=== PATIENT | female | born 1990 | race African-American/Black ===

== ENCOUNTER 2018-04-12 03:33 | Emergency (ER) | payer OTHER ==
[~2018-04-12] VITALS: Ht 162.6 cm; Wt 86.2 kg
[~2018-04-12 03:33] MED LIST: ANECREAM530 GM TOP; BACTRIM DS TAB1 EACH PO; CELEXA20 MG PO; COLACE100 MG PO; DIFLUCAN200 MG PO; IBUPROFEN 600600 M1 PO; IBUPROFEN 800800 MG PO; KEFLEX500 MG PO; MIRALAX17 GM PO; ONDANSETRON HCL4 M2 PO; PREDNISONE 10 M10 M1 PO; PROCTOFOAM15 GM RECTAL; PYRIDIUM100 M1 PO; TRAMADOL 50 MG50 MG PO; TRINATE TABLET1 TAB PO; ULTRAM 50MG TAB50 MG PO; VENTOLIN HFA 1818 GM INH; VISTARIL 25 MG25 M1 PO; ZPAK PO
[2018-04-12 03:56] LABS: URINE BILIRUBIN NEGATIVE (Negative); URINE BLOOD NEGATIVE (Negative); URINE CLARITY CLEAR; URINE COLOR YELLOW; URINE GLUCOSE-RANDOM* NEGATIVE (Negative); URINE KETONES NEGATIVE (Negative); URINE LEUKOCYTES-REFLEX NEGATIVE (Negative); URINE NITRITE-REFLEX NEGATIVE (Negative); URINE PROTEIN (DIPSTICK) NEGATIVE (Negative); URINE UROBILINOGEN 0.2 E.U./dl (0.2-1.0)
[2018-04-12 03:57] LABS: ABSOLUTE NEUTROPHILS 2.9 thou/uL (1.4-8.2); BASOPHILS 0.9 % (0.0-2.0); EOSINOPHILS 3.7 % (0.0-3.0); HEMATOCRIT 46.7 % (37.0-47.0); LYMPHOCYTES 37.4 % (24.0-44.0); MCH 34.1 pg (26.0-34.0); MCHC 34.3 g/dL (28.0-37.0); MCV 99.5 fL (80.0-100.0); MONOCYTES 6.2 % (1.0-8.0); PLATELET COUNT 271 thou/uL (150-400); POLYS 51.8 % (36.0-66.0); RDW 13.9 % (10.5-14.5); WBC 5.6 thou/uL (4.0-11.0)
[2018-04-12 04:01] LABS: CALCIUM 8.8 mg/dL (8.5-10.1); CREATININE 0.9 mg/dL (0.6-1.0); POTASSIUM 3.7 mmol/L (3.5-5.1)
[2018-04-12 04:07] LABS: TOTAL BILIRUBIN 0.2 mg/dL (<0.1-1.0); TOTAL PROTEIN 7.9 g/dL (6.4-8.2)
[2018-04-12] MEDS ORDERED: ZOFRAN4 MG PO (05:26)
[2018-04-12 05:34] VITALS: BP 99/61
== END 2018-04-12 05:34 | disposition home or self-care (01) ==
LOC: ER 03:33
PROVIDERS: Student in an Organized Health Care Education/Training Program
DX: R10.84 Generalized abdominal pain (principal); R11.2 Nausea with vomiting, unspecified

== ENCOUNTER → 2020-07-03 | Outpatient (CLI) | payer OTHER ==
[~2020-07-03] MED LIST changes: +ZOFRAN4 MG PO
== END ==
LOC: LAB 11:44
PROVIDERS: ATTEND Nurse Practitioner
DX: R50.9 Fever, unspecified (principal); R05 Cough; Z20.822 Contact with and (suspected) exposure to COVID-19

== ENCOUNTER 2021-02-07 12:58 | Emergency (ER) | payer OTHER ==
[~2021-02-07] VITALS: Ht 162.6 cm; Wt 99.8 kg
[2021-02-07 12:58] VITALS: BP 137/83
[2021-02-07] MEDS ORDERED: DESYREL150 MG PO (13:05)
[2021-02-07 13:18] LABS: URINE BILIRUBIN NEGATIVE (Negative); URINE BLOOD NEGATIVE (Negative); URINE CLARITY CLEAR; URINE COLOR YELLOW; URINE GLUCOSE-RANDOM* NEGATIVE (Negative); URINE KETONES NEGATIVE (Negative); URINE LEUKOCYTES-REFLEX NEGATIVE (Negative); URINE NITRITE-REFLEX NEGATIVE (Negative); URINE PROTEIN (DIPSTICK) NEGATIVE (Negative); URINE SPECIFIC GRAVITY <= 1.005 (1.005-1.035); URINE UROBILINOGEN 0.2 E.U./dl (0.2-1.0)
[2021-02-07] MEDS ORDERED: IBUPROFEN 800800 MG PO (14:12)
[2021-02-07] MEDS ORDERED: FLEXERIL PO (14:12)
== END 2021-02-07 14:20 | disposition home or self-care (01) ==
LOC: ER 12:58
PROVIDERS: Emergency Medicine
DX: M47.817 Spondylosis without myelopathy or radiculopathy, lumbosacral region (principal); J45.909 Unspecified asthma, uncomplicated; F41.9 Anxiety disorder, unspecified; Z79.899 Other long term (current) drug therapy; Z91.041 Radiographic dye allergy status